=== PATIENT | male | born 1995 | race Caucasian/White ===

== ENCOUNTER 2018-08-13 16:30 | Emergency (ER) | payer SELFPAY ==
[2018-08-13] MEDS: MIDAZOLAM 1 MG/ML 2 ML INJ IM (17:02)
== END 2018-08-13 18:19 | disposition home or self-care (01) ==
LOC: E/R 16:30
DX: F41.0 Panic disorder [episodic paroxysmal anxiety] (principal)
CPT/HCPCS: 93005; 96372; 99284-25